=== PATIENT | female | born 1955 | race African-American/Black ===

== ENCOUNTER 2019-06-10 22:04 | Emergency (ER) | payer OTHER ==
[~2019-06-10] VITALS: Ht 167.6 cm; Wt 74.8 kg
[~2019-06-10 22:04] MED LIST: ASPI-1718 PO; ATEN25TA7 PO; MULT-2000 PO; ORE25 PO
[2019-06-10 22:10] VITALS: BP 150/93
--- NOTE | 2019-06-10 22:20 | NUR ---
Yumi bhatti in [facility] - 06/10/19 at 2226 by NISHA PT AMBULATED TO BED WITH FAMILY
--- NOTE | 2019-06-10 22:22 | NUR ---
PT WHEELCHAIR ASSISTED TO BEDSIDE, ABLE TO STAND AND AMBULATE TO BED
--- NOTE | 2019-06-10 22:22 | NUR ---
64 Y/O FEMALE BIB VIA WHEELCHAIR. BODY PAIN, MOSTLY ON LOWER BACK RADIATING TO R LEG, X1 WEEK, WORSENING TODAY. REPORTS SHE IS PENDING R HIP REPLACEMENT SOON. DENIES RECENT INJURY/TRAUMA. +2 PEDAL PULSES BILATERALLY. <3 SECONDS CAPILLARY REFILL. PAIN IS A 10/10 AT THIS TIME AND IS EXACERBATED WHEN WALKING. PT. IS ABLE TO PERFORM PASSIVE ROM WITH ASSISTANCE. PATIENT STATES, "IT'S A THROBBING PAIN". DENIES N/V/D. ERMD MADE AWARE OF STATUS. SIDE RAILSX1. AT BEDSIDE. WILL CONTINUE TO MONITOR. HX: HTN, R KNEE REPLACEMENT (2017) RX: HTCZ, ATENOLOL, GABAPENTIN, NAPROXEN AND NORCO WITHOUT RELIEF NKDA
--- NOTE | 2019-06-10 22:49 | NUR ---
ERMD AT BEDSIDE EVALUATING PATIENT.
[2019-06-10] MEDS ORDERED: MORPHINE SULFATE 4 MG/ML SYR IM ONE (22:55)
[2019-06-10] MEDS ORDERED: KETOROLAC 30 MG/ML VIAL IM ONE (22:55)
[2019-06-10 23:25] VITALS: BP 138/84
--- NOTE | 2019-06-10 23:25 | NUR ---
Patient discharged with v/s stable. Written and verbal after care instructions given and explained. Patient verbalized understanding. Wheel Chair Assisted with to home. All questions addressed prior to discharge. Advised to follow up with PMD.
--- NOTE | 2019-06-10 23:25 | NUR ---
Yumi bhatti in [facility] - 06/10/19 at 2343 by ALDA Patient discharged with v/s stable. Written and verbal after care instructions given and explained. Patient verbalized understanding. Ambulatory with steady gait. All questions addressed prior to discharge. Advised to follow up with PMD.
== END 2019-06-10 23:25 | disposition home or self-care (01) ==
LOC: MED 22:04
DX: M54.41 Lumbago with sciatica, right side (principal); M19.90 Unspecified osteoarthritis, unspecified site; I10 Essential (primary) hypertension; Z96.651 Presence of right artificial knee joint; Z79.899 Other long term (current) drug therapy; Z79.82 Long term (current) use of aspirin
CPT/HCPCS: 96372; 99283; J1885; J2270

== ENCOUNTER 2023-02-27 13:01 | Emergency (ER) | payer OTHER ==
[~2023-02-27] VITALS: Ht 167.6 cm; Wt 65.8 kg
[~2023-02-27 13:01] MED LIST changes: -ASPI-1718 PO; +ASPI-1822 PO; +HYDR-4004 PO; -ORE25 PO
[2023-02-27 13:10] VITALS: BP 161/98; PULSE 60; RESP 18; TEMP 98; O2SAT 99
[2023-02-27 15:10] LABS: BASOPHILS % (AUTO) 0.8 % (0.0-2.0); EOSINOPHILS # (AUTO) 0.1 K/uL (0-0.4); EOSINOPHILS % (AUTO) 1.2 % (0.0-4.0); HEMATOCRIT 36.2 % (36-48); LYMPHOCYTES # (AUTO) 1.4 K/uL (2.5-16.5); LYMPHOCYTES % (AUTO) 32.7 % (20.5-51.1); MEAN CORPUSCULAR HEMOGLOBIN 31 pg (27-31); MEAN CORPUSCULAR HGB CONC 33 g/dL (33-37); MONOCYTES # (AUTO) 0.4 K/uL (0.8-1.0); NEUTROPHILS # (AUTO) 2.4 K/uL (1.8-7.7); NEUTROPHILS % (AUTO) 55.3 % (42.2-75.2); PLATELET COUNT (AUTO) 188 K/uL (140-450); RED BLOOD CELL COUNT(AUTO) 3.89 MIL/uL (4.20-5.40); RED CELL DISTRIBUTION WIDTH 14.2 % (11.6-13.7); WHITE BLOOD COUNT (AUTO) 4.3 K/uL (4.8-10.8)
[2023-02-27] MEDS ORDERED: FAMOTIDINE 20 MG TAB PO ONE (15:25)
[2023-02-27] MEDS ORDERED: KETOROLAC 30 MG/ML VIAL IM ONE (15:25)
[2023-02-27 15:29] VITALS: PULSE 86
[2023-02-27 15:33] LABS: INR 1.11 (0.8-1.2); PARTIAL THROMBOPLASTIN TIME 27.9 secs (22-35.6); PROTHROMBIN TIME 11.5 secs (10.8-13.4)
[2023-02-27] MEDS ORDERED: ALUMINUM HYD/MAG/SIMETHICONE 30 ML UDC PO ONE (15:35)
[2023-02-27] MEDS ORDERED: DICYCLOMINE 10 MG CAP PO ONE (15:35)
[2023-02-27 15:46] LABS: ALANINE AMINOTRANSFERASE 15 U/L (12-78); ALBUMIN 3.8 g/dL (3.4-5.0); ALKALINE PHOSPHATASE 53 U/L (50-136); ANION GAP 10.4 (8-16); ASPARTATE AMINOTRANSFERASE 22 U/L (15-37); CALCIUM 9.3 mg/dL (8.5-10.1); CARBON DIOXIDE 30.6 mmol/L (21-32); CHLORIDE 100 mmol/L (98-107); CREATININE 0.8 mg/dL (0.6-1.3); GFR ARICAN-AMERICAN 92 mL/min (>90); GFR NON ARICAN-AMERICAN 76 mL/min (>90); GLUCOSE 89 mg/dL (74-106); LIPASE 22 U/L (73-393); SODIUM SERUM 137 mmol/L (136-145); TOTAL BILIRUBIN 0.8 mg/dL (0.0-1.0); UREA NITROGEN, BLOOD 5 mg/dL (7-18)
[2023-02-27 16:10] VITALS: O2SAT 97
[2023-02-27 16:25] LABS: APPEARANCE,URINE CLEAR (CLEAR); BILIRUBIN,URINE NEGATIVE (NEGATIVE); BLOOD, URINE NEGATIVE (NEGATIVE); COLOR,URINE YELLOW (YELLOW); LEUKOCYTE ESTERASE ,URINE NEGATIVE (NEGATIVE); NITRITE, URINE NEGATIVE (NEGATIVE); PROTEIN,URINE NEGATIVE (NEGATIVE); UGLUCOSE NEGATIVE (NEGATIVE); UROBILINOGEN,URINE 0.2 EU/dL (0.2 - 1)
[2023-02-27] MEDS ORDERED: FAMO-90 PO (17:06)
[2023-02-27] MEDS ORDERED: BEN10 PO (17:06)
[2023-02-27] MEDS ORDERED: CALC-870 PO (17:06)
== END 2023-02-27 17:38 | disposition home or self-care (01) ==
LOC: MED 13:01
DX: K21.9 Gastro-esophageal reflux disease without esophagitis (principal); R14.1 Gas pain; I10 Essential (primary) hypertension; Z79.899 Other long term (current) drug therapy; Z98.890 Other specified postprocedural states
CPT/HCPCS: 36415; 71045; 80053; 81003; 83690; 84484; 85025; 85610; 85730; 93005; 96372; 99285; J1885

== ENCOUNTER 2023-12-24 09:37 | Emergency (ER) | payer OTHER ==
[~2023-12-24] VITALS: Ht 167.6 cm; Wt 63.5 kg
[~2023-12-24 09:37] MED LIST changes: +BEN10 PO; +CALC-870 PO; +FAMO-90 PO
[2023-12-24 09:45] VITALS: BP 143/98; PULSE 67; RESP 17; TEMP 97.9; O2SAT 100
[2023-12-24 10:22] LABS: BASOPHILS % (AUTO) 0.6 % (0.0-2.0); EOSINOPHILS % (AUTO) 0.9 % (0.0-4.0); HEMATOCRIT 41.3 % (36-48); HEMOGLOBIN 13.7 g/dL (12.0-16.0); LYMPHOCYTES % (AUTO) 18.8 % (20.5-51.1); MEAN CORPUSCULAR HEMOGLOBIN 32 pg (27-31); MEAN CORPUSCULAR HGB CONC 33 g/dL (33-37); MONOCYTES # (AUTO) 0.3 K/uL (0.8-1.0); MONOCYTES % (AUTO) 5.3 % (1.7-9.3); NEUTROPHILS # (AUTO) 3.8 K/uL (1.8-7.7); NEUTROPHILS % (AUTO) 74.4 % (42.2-75.2); PLATELET COUNT (AUTO) 237 K/uL (140-450); RED CELL DISTRIBUTION WIDTH 13.7 % (11.6-13.7); WHITE BLOOD COUNT (AUTO) 5.1 K/uL (4.8-10.8)
[2023-12-24 10:30] LABS: ANION GAP 14.7 (8-16); CALCIUM 8.9 mg/dL (8.5-10.1); CARBON DIOXIDE 26.6 mmol/L (21-32); CREATININE 0.7 mg/dL (0.6-1.3); POTASSIUM 4.3 mmol/L (3.5-5.1)
[2023-12-24] MEDS: LORazepam 0.5 MG TAB PO ONE (10:38)
[2023-12-24 12:11] VITALS: BP 149/91; PULSE 63; RESP 10; O2SAT 98
[2023-12-24] MEDS ORDERED: LORA-476 PO (13:00)
== END 2023-12-24 13:14 | disposition home or self-care (01) ==
LOC: MED 09:37
DX: R07.89 Other chest pain (principal); F43.20 Adjustment disorder, unspecified; I10 Essential (primary) hypertension; Z79.82 Long term (current) use of aspirin; Z79.899 Other long term (current) drug therapy; Z96.649 Presence of unspecified artificial hip joint; Z96.659 Presence of unspecified artificial knee joint
CPT/HCPCS: 36415; 71045; 80048; 84484; 85025; 93005; 99285